=== PATIENT | male | born 1935 | race Caucasian/White ===

== ENCOUNTER 2025-06-05 01:04 | Emergency (ER) | payer OTHER ==
[~2025-06-05] VITALS: Ht 172.7 cm; Wt 70.5 kg
[2025-06-05 02:34] VITALS: BP 122/76; PULSE 62; RESP 16; TEMP 97.6; O2SAT 96
[2025-06-05 02:50] LABS: COVID AG,FIA SOURCE NASAL SWAB
[2025-06-05 03:01] LABS: SARS-COV2 (COVID) ANTIGEN,FIA Negative (Negative)
== END 2025-06-05 05:36 | disposition home or self-care (01) ==
LOC: EMS 01:12
DX: F03.911 Unspecified dementia, unspecified severity, with agitation (principal); R45.1 Restlessness and agitation; J43.9 Emphysema, unspecified; F32.A Depression, unspecified; Z20.822 Contact with and (suspected) exposure to COVID-19
CPT/HCPCS: 99283